=== PATIENT | male | born 1975 | race Caucasian/White ===

== ENCOUNTER 2021-04-26 21:55 | Emergency (ER) | payer OTHER ==
[~2021-04-26] VITALS: Ht 165.1 cm; Wt 80.7 kg
[2021-04-26] MEDS ORDERED: ANXIETY MEDICATION (22:05)
[2021-04-27 03:29] VITALS: BP 134/87
== END 2021-04-27 03:29 | disposition home or self-care (01) ==
LOC: M.ERS 21:55
DX: S02.2XXA Fracture of nasal bones, initial encounter for closed fracture (principal); S63.501A Unspecified sprain of right wrist, initial encounter; S50.02XA Contusion of left elbow, initial encounter; S40.011A Contusion of right shoulder, initial encounter; E78.00 Pure hypercholesterolemia, unspecified; Z79.899 Other long term (current) drug therapy; W10.8XXA Fall (on) (from) other stairs and steps, initial encounter; Y93.89 Activity, other specified; Y92.89 Other specified places as the place of occurrence of the external cause; Y99.8 Other external cause status